=== PATIENT | female | born 1995 | race Caucasian/White ===

== ENCOUNTER 2017-03-09 20:31 | Emergency (ER) | payer OTHER, MEDICAID ==
[2017-03-09 22:43] LABS: BASO # 0.1 10^3/uL (0.0-0.2); BASO % 0.6 % (0.0-1.0); EOS # 0.2 10^3/uL (0.0-0.50); EOS % 1.9 % (0.0-3.0); IMMATURE GRANULOCYTE % 0.2 % (0-0); LYMPH # 2.1 10^3/uL (1.5-6.5); LYMPH % 25.7 % (24.0-44.0); MEAN CORPUSCULAR HEMOGLOBIN 28.5 pg (27.0-33.0); MEAN CORPUSCULAR HGB CONC 33.3 g/dl (32.0-36.5); MEAN CORPUSCULAR VOLUME 85.4 fl (80.0-96.0); MONO # 0.5 10^3/uL (0.0-0.8); MONO % 6.5 % (0.0-5.0); NEUTROPHILS # 5.3 10^3/uL (1.8-7.7); NEUTROPHILS % 65.1 % (36.0-66.0); PLATELET COUNT, AUTOMATED 268 10^3/uL (150-450); RED CELL DISTRIBUTION WIDTH 13.5 % (11.5-14.5); WHITE BLOOD COUNT 8.1 10^3/uL (4.0-10.0)
[2017-03-09 22:54] LABS: INR 0.97
[2017-03-09 22:58] LABS: CONTROL LINE HCG INT CTR LINE PRESENT
[2017-03-09 23:03] LABS: ANION GAP 5 MEQ/L (8-16); BLOOD UREA NITROGEN 17 MG/DL (7-18); CALCIUM LEVEL 8.9 MG/DL (8.5-10.1); CARBON DIOXIDE LEVEL 30 MEQ/L (21-32); CHLORIDE LEVEL 106 MEQ/L (98-107); CREATININE FOR GFR 0.61 MG/DL (0.55-1.02); GLOMERULAR FILTRATION RATE > 60.0 (>60); GLUCOSE, FASTING 86 MG/DL (70-105); MAGNESIUM LEVEL 2.1 MG/DL (1.8-2.4); POTASSIUM SERUM 3.9 MEQ/L (3.5-5.1); SODIUM LEVEL 141 MEQ/L (136-145)
== END 2017-03-10 00:20 | disposition home or self-care (01) ==
LOC: M ED 03-10 00:20
DX: R55 Syncope and collapse (principal); F90.9 Attention-deficit hyperactivity disorder, unspecified type; Z79.899 Other long term (current) drug therapy; Z88.0 Allergy status to penicillin
CPT/HCPCS: 70450

== ENCOUNTER 2017-03-17 15:29 | Emergency (ER) | payer MEDICAID, OTHER | END 2017-03-17 16:37 | disposition home or self-care (01) | LOC: M ED 15:29 | DX: J06.9 Acute upper respiratory infection, unspecified (principal); R05 Cough; R07.0 Pain in throat; F90.9 Attention-deficit hyperactivity disorder, unspecified type; F41.9 Anxiety disorder, unspecified; Z79.899 Other long term (current) drug therapy; Z88.0 Allergy status to penicillin | CPT/HCPCS: 87880 ==

== ENCOUNTER 2017-04-09 18:46 | Emergency (ER) | payer MEDICAID, OTHER, SELFPAY ==
[2017-04-09 21:18] LABS: BASO # 0.1 10^3/uL (0.0-0.2); BASO % 0.6 % (0.0-1.0); EOS # 0.5 10^3/uL (0.0-0.50); HEMATOCRIT 36.7 % (36.0-47.0); HEMOGLOBIN 12.3 g/dl (12.0-16.0); IMMATURE GRANULOCYTE % 0.2 % (0-0); LYMPH # 2.3 10^3/uL (1.5-6.5); LYMPH % 18.3 % (24.0-44.0); MEAN CORPUSCULAR HEMOGLOBIN 28.4 pg (27.0-33.0); MEAN CORPUSCULAR HGB CONC 33.5 g/dl (32.0-36.5); MEAN CORPUSCULAR VOLUME 84.8 fl (80.0-96.0); MONO # 0.7 10^3/uL (0.0-0.8); MONO % 5.8 % (0.0-5.0); NEUTROPHILS # 8.8 10^3/uL (1.8-7.7); NEUTROPHILS % 71.1 % (36.0-66.0); PLATELET COUNT, AUTOMATED 231 10^3/uL (150-450); RED BLOOD COUNT 4.33 10^6/uL (4.00-5.40); WHITE BLOOD COUNT 12.4 10^3/uL (4.0-10.0)
[2017-04-09] MEDS: ONDANSETRON 4 MG ORAL DISINTEGRATING TAB (S0181) PO (21:23)
[2017-04-09 21:25] LABS: AMORPHOUS SEDIMENT RFX SMALL (NEGATIVE); KETONE, URINE AUTO RFX NEGATIVE (NEGATIVE); LEUKOCYTE ESTERASE UR AUTO RFX 3+ (NEGATIVE); MUCUS, URINE RFX SMALL (NEGATIVE); NITRITE, URINE AUTO RFX NEGATIVE (NEGATIVE); RBC, URINE AUTO RFX 42 /HPF (0-3); SPECIFIC GRAVITY UR AUTO RFX 1.014 (1.002-1.035); SQUAM EPITHELIAL CELL UR AURFX 0 /HPF (0-6); WBC, URINE AUTO RFX TNTC /HPF (0-3)
[2017-04-09 21:36] LABS: CONTROL LINE HCG INT CTR LINE PRESENT; HCG, SERUM QUALITATIVE POSITIVE (NEGATIVE)
[2017-04-09 21:51] LABS: ALBUMIN/GLOBULIN RATIO 1.25 (1.00-1.93); ALKALINE PHOSPHATASE 59 U/L (45-117); ALT/SGPT 17 U/L (12-78); ANION GAP 5 MEQ/L (8-16); AST/SGOT 6 U/L (7-37); BILIRUBIN,DIRECT < 0.1 MG/DL (0.0-0.2); BILIRUBIN,TOTAL 0.3 MG/DL (0.2-1.0); BLOOD UREA NITROGEN 12 MG/DL (7-18); CALCIUM LEVEL 9.7 MG/DL (8.5-10.1); CARBON DIOXIDE LEVEL 28 MEQ/L (21-32); CHLORIDE LEVEL 107 MEQ/L (98-107); CREATININE FOR GFR 0.57 MG/DL (0.55-1.02); GLOMERULAR FILTRATION RATE > 60.0 (>60); GLUCOSE, FASTING 78 MG/DL (70-100); LIPASE 145 U/L (73-393); POTASSIUM SERUM 3.7 MEQ/L (3.5-5.1); SODIUM LEVEL 140 MEQ/L (136-145); TOTAL PROTEIN 7.2 GM/DL (6.4-8.2)
[2017-04-09 22:00] LABS: HCG, SERUM QUANTITATIVE 864 MIU/ML
== END 2017-04-10 00:05 | disposition home or self-care (01) ==
LOC: M ED 04-10 00:05
DX: Z32.01 Encounter for pregnancy test, result positive (principal); R10.9 Unspecified abdominal pain; N83.202 Unspecified ovarian cyst, left side; Z88.0 Allergy status to penicillin
CPT/HCPCS: 76801

== ENCOUNTER → 2017-04-11 | Outpatient (CLI) | payer MEDICAID ==
[2017-04-11 15:09] LABS: HCG, SERUM QUANTITATIVE 1731 MIU/ML
== END ==
LOC: M LAB 14:15
DX: Z32.01 Encounter for pregnancy test, result positive (principal)
CPT/HCPCS: 84702

== ENCOUNTER → 2017-07-21 | Outpatient (CLI) | payer OTHER | LOC: M SMT 10:20 | DX: O36.8920 Maternal care for other specified fetal problems, second trimester, not applicable or unspecified (principal); Z3A.19 19 weeks gestation of pregnancy | CPT/HCPCS: 76811 ==

== ENCOUNTER → 2017-09-20 | Outpatient (CLI) | payer OTHER ==
[2017-09-20 13:11] LABS: HEMATOCRIT 31.8 % (36.0-47.0); HEMOGLOBIN 10.9 g/dl (12.0-15.5); MEAN CORPUSCULAR HEMOGLOBIN 29.6 pg (27.0-33.0); MEAN CORPUSCULAR HGB CONC 34.3 g/dl (32.0-36.5); MEAN CORPUSCULAR VOLUME 86.4 fl (80.0-96.0); PLATELET COUNT, AUTOMATED 226 10^3/uL (150-450); RED BLOOD COUNT 3.68 10^6/uL (4.00-5.40); RED CELL DISTRIBUTION WIDTH 12.6 % (11.5-14.5); WHITE BLOOD COUNT 8.9 10^3/uL (4.0-10.0)
[2017-09-20 13:32] LABS: GLUCOSE CHALLENGE TEST 1 HOUR 98 MG/DL (LESS THAN 140)
== END ==
LOC: M SMT 10:00
DX: Z34.82 Encounter for supervision of other normal pregnancy, second trimester (principal)
CPT/HCPCS: 82950

== ENCOUNTER 2018-01-23 20:20 | Inpatient (IN) | payer MEDICAID, SELFPAY, OTHER ==
[~2018-01-23 20:20] MED LIST: ONDANSETRON 4MG/2ML VIAL (J2405) IV
[2018-01-23] MEDS ORDERED: HYDROMORPHONE HCL 0.5 MG/ 0.5 ML SYRINGE (J1170 PER 1) IV ×2 (21:30)
[2018-01-23] MEDS: LR 1,000 ML IV (21:36)
[2018-01-23] MEDS: MORPHINE 4 MG/ML 1ML VIAL/SYRINGE (J2270) IV (21:55)
[2018-01-23 22:09] LABS: BASO % 0.4 % (0.0-1.0); EOS # 0.2 10^3/uL (0.0-0.50); EOS % 3.1 % (0.0-3.0); HEMATOCRIT 33.1 % (36.0-47.0); HEMOGLOBIN 10.4 g/dl (12.0-15.5); IMMATURE GRANULOCYTE % 0.2 % (0-3.0); LYMPH % 39.2 % (24.0-44.0); MEAN CORPUSCULAR HEMOGLOBIN 25.2 pg (27.0-33.0); MEAN CORPUSCULAR HGB CONC 31.4 g/dl (32.0-36.5); MEAN CORPUSCULAR VOLUME 80.1 fl (80.0-96.0); MONO # 0.3 10^3/uL (0.0-0.8); MONO % 6.4 % (0.0-5.0); NEUTROPHILS # 2.6 10^3/uL (1.8-7.7); NEUTROPHILS % 50.7 % (36.0-66.0); PLATELET COUNT, AUTOMATED 189 10^3/uL (150-450); RED BLOOD COUNT 4.13 10^6/uL (4.00-5.40); RED CELL DISTRIBUTION WIDTH 15.6 % (11.5-14.5); WHITE BLOOD COUNT 5.2 10^3/uL (4.0-10.0)
[2018-01-23 22:34] LABS: ALBUMIN 3.3 GM/DL (3.2-5.2); ALBUMIN/GLOBULIN RATIO 1.18 (1.00-1.93); ALKALINE PHOSPHATASE 149 U/L (45-117); ALT/SGPT 90 U/L (12-78); AMYLASE 607 U/L (25-115); ANION GAP 6 MEQ/L (8-16); AST/SGOT 42 U/L (7-37); BILIRUBIN,TOTAL 0.4 MG/DL (0.2-1.0); BLOOD UREA NITROGEN 4 MG/DL (7-18); CALCIUM LEVEL 8.6 MG/DL (8.5-10.1); CARBON DIOXIDE LEVEL 26 MEQ/L (21-32); CHLORIDE LEVEL 109 MEQ/L (98-107); CREATININE FOR GFR 0.49 MG/DL (0.55-1.30); GLOMERULAR FILTRATION RATE > 60.0 (>60); GLUCOSE, FASTING 84 MG/DL (70-100); LIPASE 5092 U/L (73-393); POTASSIUM SERUM 4.1 MEQ/L (3.5-5.1); SODIUM LEVEL 141 MEQ/L (136-145); TOTAL PROTEIN 6.1 GM/DL (6.4-8.2)
[2018-01-24] MEDS: KETOROLAC 30 MG/ML VIAL (J1885) IV ×2 (00:21→05:31)
[2018-01-24] MEDS: LR 1,000 ML IV (05:30)
[2018-01-24] MEDS: PANTOPRAZOLE 40MG INJ (PROTONIX) (C9113) IV (09:13)
[2018-01-24] MEDS: levETIRAcetam 250MG TABLET (KEPPRA) PO (09:13)
[2018-01-24 10:30] LABS: ALBUMIN 2.9 GM/DL (3.2-5.2); ALBUMIN/GLOBULIN RATIO 1.07 (1.00-1.93); ALKALINE PHOSPHATASE 144 U/L (45-117); ALT/SGPT 76 U/L (12-78); ANION GAP 5 MEQ/L (8-16); AST/SGOT 34 U/L (7-37); BILIRUBIN,TOTAL 0.3 MG/DL (0.2-1.0); BLOOD UREA NITROGEN 4 MG/DL (7-18); CALCIUM LEVEL 8.7 MG/DL (8.5-10.1); CARBON DIOXIDE LEVEL 28 MEQ/L (21-32); CHLORIDE LEVEL 109 MEQ/L (98-107); CREATININE FOR GFR 0.52 MG/DL (0.55-1.30); GLOMERULAR FILTRATION RATE > 60.0 (>60); GLUCOSE, FASTING 84 MG/DL (70-100); LIPASE 1260 U/L (73-393); POTASSIUM SERUM 4.3 MEQ/L (3.5-5.1); SODIUM LEVEL 142 MEQ/L (136-145); TOTAL PROTEIN 5.6 GM/DL (6.4-8.2)
== END 2018-01-24 10:43 | disposition left against medical advice (07) ==
LOC: M PED 20:20
DX: K80.70 Calculus of gallbladder and bile duct without cholecystitis without obstruction (principal); K85.10 Biliary acute pancreatitis without necrosis or infection; Z79.899 Other long term (current) drug therapy; J45.909 Unspecified asthma, uncomplicated; Z88.1 Allergy status to other antibiotic agents; G40.909 Epilepsy, unspecified, not intractable, without status epilepticus

== ENCOUNTER → 2021-06-24 | Outpatient (REF) ==
[~2021-06-24] MED LIST changes: +CLON0.5T2; +FLUO10CA18 PO; +KEPP1TAB2 PO; -ONDANSETRON 4MG/2ML VIAL (J2405) IV; +PRAZ2CAP PO; +PROM12.56 PO; +RANI150T PO; +RITA10TA PO; +TESS100C PO; +TRAZ-257 PO; +VENTAER INH; +ZITHTAB PO
== END ==
LOC: M PLAIMG 12:04
PROVIDERS: ATTEND Internal Medicine
DX: M54.6 Pain in thoracic spine (principal)

== ENCOUNTER 2022-03-24 12:04 | Emergency (ER) | payer MEDICAID, OTHER ==
[~2022-03-24] VITALS: Ht 152.4 cm; Wt 62.7 kg
[2022-03-24] MEDS ORDERED: FOLI400T13 PO (12:18)
[2022-03-24] MEDS ORDERED: PALI1TAB (12:18)
[2022-03-24] MEDS ORDERED: PRENTAB77 PO (12:18)
[2022-03-24 17:23] LABS: HEMATOCRIT 35.2 % (36.0-47.0); HEMOGLOBIN 11.5 g/dl (12.0-15.5); MEAN CORPUSCULAR HEMOGLOBIN 27.9 pg (27.0-33.0); MEAN CORPUSCULAR HGB CONC 32.7 g/dl (32.0-36.5); MEAN CORPUSCULAR VOLUME 85.4 fl (80.0-96.0); PLATELET COUNT, AUTOMATED 205 10^3/uL (150-450); RED BLOOD COUNT 4.12 10^6/uL (4.00-5.40); WHITE BLOOD COUNT 9.8 10^3/uL (4.0-10.0)
[2022-03-24 17:45] LABS: BASOPHILS 1 % (0-1); LYMPHOCYTES 15 % (16-44); MONOCYTES 2 % (0-5); NEUTROPHILS 82 % (28-66); PLATELET ESTIMATE NORMAL (NORMAL)
[2022-03-24 17:53] LABS: BILIRUBIN,DIRECT < 0.1 MG/DL (<0.4); CPK CREATINE PHOSPHOKINASE 17 U/L (34-145); MAGNESIUM LEVEL 1.6 MG/DL (1.8-2.4)
[2022-03-24 17:54] LABS: ALBUMIN 3.1 G/DL (3.2-5.2); ALKALINE PHOSPHATASE 104 U/L (46-116); ALT/SGPT 36 U/L (7.0-40); AST/SGOT 17 U/L (<34); BILIRUBIN,TOTAL 0.3 MG/DL (0.3-1.2); BLOOD UREA NITROGEN 6 MG/DL (9-23); CALCIUM LEVEL 8.9 MG/DL (8.5-10.1); CARBON DIOXIDE LEVEL 25 MMOL/L (20-31); CHLORIDE LEVEL 104 MMOL/L (98-107); CREATININE FOR GFR 0.38 MG/DL (0.55-1.30); GLOMERULAR FILTRATION RATE > 60.0 (>60); GLUCOSE, FASTING 73 MG/DL (60-100); POTASSIUM SERUM 3.6 MMOL/L (3.5-5.1); SODIUM LEVEL 137 MMOL/L (136-145); TOTAL PROTEIN 6.2 G/DL (5.7-8.2)
[2022-03-24] MEDS ORDERED: MAGNESIUM OXIDE 400MG TAB (MAG-OX) PO ONE (18:15)
[2022-03-24] MEDS ORDERED: ACETAMINOPHEN 325 MG TAB PO ONE (18:35)
[2022-03-24] MEDS ORDERED: PERCOCET 5MG/325MG TAB PO ONE (19:35)
[2022-03-24 21:02] VITALS: BP 100/65
== END 2022-03-24 21:16 | disposition home or self-care (01) ==
LOC: M ED 12:04
DX: O99.352 Diseases of the nervous system complicating pregnancy, second trimester (principal); G40.909 Epilepsy, unspecified, not intractable, without status epilepticus; F31.9 Bipolar disorder, unspecified; F90.9 Attention-deficit hyperactivity disorder, unspecified type; F43.10 Post-traumatic stress disorder, unspecified; G43.909 Migraine, unspecified, not intractable, without status migrainosus; J45.909 Unspecified asthma, uncomplicated; Z88.1 Allergy status to other antibiotic agents; Z3A.18 18 weeks gestation of pregnancy; Z79.51 Long term (current) use of inhaled steroids; Z79.810 Long term (current) use of selective estrogen receptor modulators (SERMs); Z79.899 Other long term (current) drug therapy

== ENCOUNTER 2022-07-28 15:03 | Inpatient (IN) | payer OTHER ==
[2022-07-28] VITALS (16 sets, daily range): BP systolic 94–121; BP diastolic 50–76
[~2022-07-28] VITALS: Ht 152.4 cm; Wt 63.0 kg
[~2022-07-28 15:03] MED LIST changes: +FOLI400T13 PO; +PALI1TAB; +PRENTAB77 PO
[2022-07-28] MEDS ORDERED: URSO300C3 PO (15:22)
[2022-07-28] MEDS ORDERED: ZONI100C67 PO (15:22)
[2022-07-28] MEDS ORDERED: HOME MED LIST COMPLETE! XX SCH (15:25)
[2022-07-28] MEDS ORDERED: METHYLERGONOVINE MALEATE 0.2MG/ML 1ML VIAL IM PRN (17:35)
[2022-07-28] MEDS ORDERED: TRANEXAMIC ACID INJection 1,000 MG in NS 100 ML IV PRN (17:35)
[2022-07-28] MEDS ORDERED: OXYTOCIN INJ 10UNITS/ML 1ML VIAL IM PRN (17:35)
[2022-07-28] MEDS ORDERED: OXYTOCIN DRIP 30 UNITS in IV 1 EA IV PRN ×4 (17:35)
[2022-07-28] MEDS ORDERED: LIDOCAINE 1% MDV 20ML VIAL INFIL PRN (17:35)
[2022-07-28] MEDS ORDERED: CARBOPROST TROMETHAMINE 250 MCG/ML AMP IM PRN (17:35)
[2022-07-28 18:16] LABS: HEMATOCRIT 29.3 % (36.0-47.0); HEMOGLOBIN 9.1 g/dl (12.0-15.5); MEAN CORPUSCULAR HGB CONC 31.1 g/dl (32.0-36.5); MEAN CORPUSCULAR VOLUME 74.2 fl (80.0-96.0); PLATELET COUNT, AUTOMATED 265 10^3/uL (150-450); RED BLOOD COUNT 3.95 10^6/uL (4.00-5.40)
[2022-07-28 18:50] LABS: ALBUMIN 2.2 G/DL (3.2-5.2); ALKALINE PHOSPHATASE 202 U/L (46-116); ALT/SGPT 115 U/L (7.0-40); AST/SGOT 44 U/L (<34); BILIRUBIN,TOTAL 0.4 MG/DL (0.3-1.2); BLOOD UREA NITROGEN 7 MG/DL (9-23); CALCIUM LEVEL 9.5 MG/DL (8.5-10.1); CARBON DIOXIDE LEVEL 19 MMOL/L (20-31); CHLORIDE LEVEL 107 MMOL/L (98-107); CREATININE FOR GFR 0.45 MG/DL (0.55-1.30); GLOMERULAR FILTRATION RATE > 60.0 (>60); GLUCOSE, FASTING 114 MG/DL (60-100); POTASSIUM SERUM 4.1 MMOL/L (3.5-5.1); SODIUM LEVEL 136 MMOL/L (136-145); TOTAL PROTEIN 5.6 G/DL (5.7-8.2)
[2022-07-28] MEDS ORDERED: KEPP10002 PO (19:34)
[2022-07-28] MEDS: LR 1,000 ML IV SCH (19:54)
[2022-07-28] MEDS ORDERED: EPIDURAL/PCA KEYS XX PRN (20:10)
[2022-07-28] MEDS ORDERED: NALOXONE INJ 0.4MG/1ML VIAL IV PRN (20:10)
[2022-07-28] MEDS ORDERED: diphenhydrAMINE 50MG/ML VIAL IV PRN (20:10)
[2022-07-28] MEDS ORDERED: LR 500 ML IV PRN (20:10)
[2022-07-28] MEDS ORDERED: ONDANSETRON 4MG 2ML VIAL IV PRN (20:10)
[2022-07-28] MEDS ORDERED: ePHEDrine SULFATE 25 MG/5 ML(5MG/ML) SYRINGE IVP PRN (20:10)
[2022-07-28] MEDS: FENTANYL/ROPIVACAINE/NACL BAG 100 ML EPIDURAL SCH (22:08)
[2022-07-28] MEDS: ZONISAMIDE 100 MG CAP (ZONEGRAN) PO SCH (22:08)
[2022-07-28] MEDS: ursodioL 300MG CAP PO SCH (22:09)
[2022-07-28] MEDS: levETIRAcetam 250MG TABLET (KEPPRA) PO SCH (22:10)
[2022-07-29] VITALS (19 sets, daily range): BP systolic 86–114; BP diastolic 51–71
[2022-07-29] MEDS: LR 1,000 ML IV SCH ×3 (06:16→22:01)
[2022-07-29] MEDS: FENTANYL/ROPIVACAINE/NACL BAG 100 ML EPIDURAL SCH ×2 (06:16→16:18)
[2022-07-29] MEDS: levETIRAcetam 250MG TABLET (KEPPRA) PO SCH ×2 (09:10→21:32)
[2022-07-29] MEDS: ursodioL 300MG CAP PO SCH ×3 (09:16→21:33)
[2022-07-29] MEDS ORDERED: BETAMETHASONE SOLUSPAN 6MG/ML 5ML VIAL IM ONE (12:10)
[2022-07-29] MEDS ORDERED: OXYTOCIN DRIP 30 UNITS in IV 1 EA IV SCH (17:50)
[2022-07-29] MEDS: ZONISAMIDE 100 MG CAP (ZONEGRAN) PO SCH (22:01)
[2022-07-30] VITALS (16 sets, daily range): BP systolic 103–120; BP diastolic 55–73
[2022-07-30] MEDS: FENTANYL/ROPIVACAINE/NACL BAG 100 ML EPIDURAL SCH (02:23)
[2022-07-30] MEDS ORDERED: ACETAMINOPHEN 500 MG TAB PO PRN (06:35)
[2022-07-30] MEDS ORDERED: IBUPROFEN 600MG TAB PO PRN (06:35)
[2022-07-30] MEDS ORDERED: OXYTOCIN DRIP 30 UNITS in IV 1 EA IV SCH (06:35)
[2022-07-30] MEDS ORDERED: LR 1,000 ML IV SCH (06:35)
[2022-07-30] MEDS ORDERED: RHOGAM 300MCG (1500IU) INJ IM SCH (06:35)
[2022-07-30] MEDS ORDERED: DOCUSATE SODIUM 100MG CAPSULE PO PRN (06:35)
[2022-07-30] MEDS ORDERED: DIBUCAINE 1% OINTMENT 30GM TOP PRN (06:35)
[2022-07-30] MEDS: levETIRAcetam 250MG TABLET (KEPPRA) PO SCH ×2 (07:35→21:11)
[2022-07-30] MEDS: PRENATAL VITAMINS CHEWABLE TABLET PO SCH (09:00)
[2022-07-30] MEDS: IBUPROFEN 800 MG TAB PO PRN ×2 (10:05→17:06)
[2022-07-30] MEDS: ursodioL 300MG CAP PO SCH ×3 (11:27→21:10)
[2022-07-30] MEDS: ZONISAMIDE 100 MG CAP (ZONEGRAN) PO SCH (21:11)
[2022-07-31 02:00] VITALS: BP 97/59
[2022-07-31] MEDS: ACETAMINOPHEN TAB 650MG DOSE (2X325MG) PO PRN ×2 (05:31→12:02)
[2022-07-31 06:00] VITALS: BP 92/53
[2022-07-31] MEDS: levETIRAcetam 250MG TABLET (KEPPRA) PO SCH (08:59)
[2022-07-31] MEDS: ursodioL 300MG CAP PO SCH (09:00)
[2022-07-31] MEDS: PRENATAL VITAMINS CHEWABLE TABLET PO SCH (09:00)
[2022-07-31 10:00] VITALS: BP 102/62
[2022-07-31] MEDS: IBUPROFEN 800 MG TAB PO PRN (10:50)
[2022-08-01] MEDS ORDERED: ZONI50CA11 PO (03:22)
[2022-08-01] MEDS ORDERED: MEASLES,MUMPS,RUBELLA VACCINE INJ (MMR-II) SC.IMMUN ONE (09:00)
[2022-08-03] MEDS ORDERED: ACET-683 PO (11:17)
[2022-08-03] MEDS ORDERED: IBUP1TAB6 PO (11:17)
== END 2022-07-31 15:00 | disposition home or self-care (01) | DRG 560 ==
LOC: M LDO 15:03 → M LDI 17:35 → M OBS 07-30 11:04
PROVIDERS: ADMIT Advanced Practice Midwife; ATTEND Advanced Practice Midwife
PROC: 10E0XZZ Delivery of Products of Conception, External Approach (ICD-10-PCS; principal; 2022-07-30)
DX: O60.14X0 Preterm labor third trimester with preterm delivery third trimester, not applicable or unspecified (principal); K83.1 Obstruction of bile duct; O26.62 Liver and biliary tract disorders in childbirth; G40.909 Epilepsy, unspecified, not intractable, without status epilepticus; O99.354 Diseases of the nervous system complicating childbirth; Z37.0 Single live birth; Z3A.35 35 weeks gestation of pregnancy; Z88.0 Allergy status to penicillin; Z91.018 Allergy to other foods; Z79.899 Other long term (current) drug therapy; Z88.8 Allergy status to other drugs, medicaments and biological substances

== ENCOUNTER 2023-07-03 18:18 | Emergency (ER) | payer MEDICAID, OTHER ==
[~2023-07-03] VITALS: Ht 152.4 cm; Wt 63.6 kg
[~2023-07-03 18:18] MED LIST changes: +ACET-683 PO; +IBUP1TAB6 PO; +KEPP10002 PO; +URSO300C3 PO; +ZONI100C67 PO; +ZONI50CA11 PO
[2023-07-03 18:29] VITALS: TEMP 97.1
[2023-07-03] MEDS: KETOROLAC 30 MG/ML 1ML VIAL IV ONE (20:10)
[2023-07-03] MEDS: NS 1,000 ML IV ONE ×2 (20:11→20:55)
[2023-07-03] MEDS: ONDANSETRON 4MG 2ML VIAL IV ONE (20:11)
[2023-07-03 20:23] LABS: BASO # 0.1 10^3/uL (0.0-0.2); BASO % 0.7 % (0.0-1.0); EOS # 0.2 10^3/uL (0.0-0.5); EOS % 2.2 % (0.0-3.0); HEMATOCRIT 43.9 % (36.0-47.0); HEMOGLOBIN 14.3 g/dl (12.0-15.5); LYMPH # 2.8 10^3/uL (1.5-5.0); LYMPH % 33.4 % (24.0-44.0); MEAN CORPUSCULAR HEMOGLOBIN 26.3 pg (27.0-33.0); MEAN CORPUSCULAR HGB CONC 32.6 g/dl (32.0-36.5); MEAN CORPUSCULAR VOLUME 80.8 fl (80.0-96.0); MONO # 0.6 10^3/uL (0.0-0.8); MONO % 7.1 % (2.0-8.0); NEUTROPHILS # 4.7 10^3/uL (1.5-8.5); NEUTROPHILS % 56.4 % (36.0-66.0); PLATELET COUNT, AUTOMATED 256 10^3/uL (150-450); RED BLOOD COUNT 5.43 10^6/uL (4.00-5.40); WHITE BLOOD COUNT 8.3 10^3/uL (4.0-10.0)
[2023-07-03 20:47] LABS: HCG, SERUM QUALITATIVE NEGATIVE (NEGATIVE)
[2023-07-03] MEDS: MORPHINE 4 MG/ML 1ML VIAL IV ONE ×2 (21:02→22:27)
[2023-07-03 21:18] LABS: BLOOD UREA NITROGEN 16 MG/DL (9-23); CALCIUM LEVEL 9.2 MG/DL (8.5-10.1); CARBON DIOXIDE LEVEL 24 MMOL/L (20-31); CHLORIDE LEVEL 108 MMOL/L (98-107); GLOMERULAR FILTRATION RATE > 60.0 (>60); GLUCOSE, FASTING 87 MG/DL (60-100); POTASSIUM SERUM 4.1 MMOL/L (3.5-5.1); SODIUM LEVEL 142 MMOL/L (136-145)
[2023-07-03 21:30] LABS: ALKALINE PHOSPHATASE 85 U/L (46-116); ALT/SGPT 138 U/L (7.0-40); AST/SGOT 16 U/L (<34); BILIRUBIN,DIRECT 0.1 MG/DL (<0.4); BILIRUBIN,TOTAL 0.3 MG/DL (0.3-1.2); TOTAL PROTEIN 7.3 G/DL (5.7-8.2)
[2023-07-03] MEDS ORDERED: ISOVUE-370 76% 100ML VIAL As Ordered ONE (21:31)
[2023-07-03 21:53] LABS: LIPASE 35 U/L (12-53)
[2023-07-03 23:15] VITALS: BP 111/65
[2023-07-03 23:20] VITALS: O2SAT 99
[2023-07-03] MEDS ORDERED: OXYC-600 PO (23:25)
[2023-07-03 23:26] LABS: VALPROIC ACID (DEPAKOTE) 75.3 UG/ML (50.0-100.0)
== END 2023-07-03 23:35 | disposition home or self-care (01) ==
LOC: M ED 18:18
DX: G43.909 Migraine, unspecified, not intractable, without status migrainosus (principal); K63.89 Other specified diseases of intestine; Z88.1 Allergy status to other antibiotic agents
CPT/HCPCS: 74177; 80048; 80076; 80164; 80180; 80203; 83690; 84703; 85025; 96361; 96374; 96375; 96376; 99284; J1885; J2405; Q9967

== ENCOUNTER 2024-01-15 18:55 | Emergency (ER) | payer OTHER ==
[~2024-01-15] VITALS: Ht 152.4 cm; Wt 79.0 kg
[~2024-01-15 18:55] MED LIST changes: +FLUO-290 PO; -FLUO10CA18 PO; +OXYC-600 PO
[2024-01-15 19:44] LABS: IONIZED CALCIUM 4.7 MG/DL (4.5-5.3)
[2024-01-15 19:46] LABS: VENOUS BASE EXCESS -2.4 (-2.0-2.0); VENOUS HCO3 23.7 MMOL/L (23.0-27.0); VENOUS O2 SATURATION 69.8 % (60.0-80.0); VENOUS PARTIAL PRESSURE O2 39.1 mmHg (30.0-50.0); VENOUS STANDARD HCO3 21.8 MMOL/L; VENOUS TOTAL CO2 25.1 MMOL/L (24.0-28.0)
[2024-01-15 19:49] LABS: BASO # 0.1 10^3/uL (0.0-0.2); BASO % 0.9 % (0.0-1.0); EOS # 0.2 10^3/uL (0.0-0.5); EOS % 2.3 % (0.0-3.0); HEMATOCRIT 41.4 % (36.0-47.0); HEMOGLOBIN 13.2 g/dl (12.0-15.5); LYMPH # 2.7 10^3/uL (1.5-5.0); LYMPH % 28.6 % (24.0-44.0); MEAN CORPUSCULAR HEMOGLOBIN 26.1 pg (27.0-33.0); MEAN CORPUSCULAR HGB CONC 31.9 g/dl (32.0-36.5); MONO # 0.6 10^3/uL (0.0-0.8); MONO % 6.6 % (2.0-8.0); NEUTROPHILS # 5.7 10^3/uL (1.5-8.5); NEUTROPHILS % 61.3 % (36.0-66.0); PLATELET COUNT, AUTOMATED 264 10^3/uL (150-450); RED BLOOD COUNT 5.05 10^6/uL (4.00-5.40); WHITE BLOOD COUNT 9.3 10^3/uL (4.0-10.0)
[2024-01-15 20:32] LABS: VALPROIC ACID (DEPAKOTE) 108.6 UG/ML (50.0-100.0)
[2024-01-15 20:42] LABS: ALBUMIN 3.7 G/DL (3.2-5.2); ALKALINE PHOSPHATASE 61 U/L (35-104); ALT/SGPT 27 U/L (7.0-40); AST/SGOT 84 U/L (<34); BILIRUBIN,DIRECT < 0.1 MG/DL (<0.4); BILIRUBIN,TOTAL 0.3 MG/DL (0.3-1.2); BLOOD UREA NITROGEN 12 MG/DL (9-23); CALCIUM LEVEL 9.7 MG/DL (8.5-10.1); CARBON DIOXIDE LEVEL 24 MMOL/L (20-31); CHLORIDE LEVEL 107 MMOL/L (98-107); CREATININE FOR GFR 0.49 MG/DL (0.55-1.30); GLOMERULAR FILTRATION RATE > 60.0 (>60); GLUCOSE, FASTING 83 MG/DL (60-100); MAGNESIUM LEVEL 2.2 MG/DL (1.8-2.4); PHOSPHORUS LEVEL 3.6 MG/DL (2.5-4.9); POTASSIUM SERUM 4.3 MMOL/L (3.5-5.1); SODIUM LEVEL 139 MMOL/L (136-145); TOTAL PROTEIN 7.5 G/DL (5.7-8.2)
[2024-01-15] MEDS: KETOROLAC 30 MG/ML 1ML VIAL IV ONE (20:43)
[2024-01-15 20:47] LABS: AMPHETAMINES LEVEL URINE NEGATIVE (NEGATIVE); BARBITURATES URINE NEGATIVE (NEGATIVE); BENZODIAZEPINES URINE NEGATIVE (NEGATIVE); CANNABINOIDS URINE NEGATIVE (NEGATIVE); COCAINE METABOLITE URINE NEGATIVE (NEGATIVE); METHADONE URINE NEGATIVE (NEGATIVE); OPIATES URINE NEGATIVE (NEGATIVE); PHENCYCLIDINE URINE NEGATIVE (NEGATIVE)
[2024-01-15] MEDS ORDERED: ISOVUE-370 76% 100ML VIAL As Ordered ONE (20:59)
[2024-01-15] MEDS: MORPHINE 4 MG/ML 1ML VIAL IV ONE (21:32)
[2024-01-15] MEDS: levETIRAcetam INJection 1,000 MG in D5W 100 ML IV ONE (21:32)
[2024-01-15] MEDS: ANEXSIA, NORCO 7.5MG/325MG TABLET(HYDROCODONE/APAP) PO ONE (23:24)
[2024-01-15] MEDS: MORPHINE 2 MG/ML 1ML VIAL IV ONE (23:24)
[2024-01-16] MEDS ORDERED: HYDR-3713 PO (00:16)
[2024-01-16] MEDS ORDERED: MIDA5SPR NS (00:22)
[2024-01-16 00:32] VITALS: BP 103/64; TEMP 97.9; O2SAT 98
== END 2024-01-16 00:56 | disposition home or self-care (01) ==
LOC: EDBD 18:55 → M ED 18:55
DX: G40.909 Epilepsy, unspecified, not intractable, without status epilepticus (principal); R10.31 Right lower quadrant pain; G43.909 Migraine, unspecified, not intractable, without status migrainosus; F41.9 Anxiety disorder, unspecified; F31.9 Bipolar disorder, unspecified; F90.9 Attention-deficit hyperactivity disorder, unspecified type; F43.10 Post-traumatic stress disorder, unspecified; F32.A Depression, unspecified; Z88.1 Allergy status to other antibiotic agents; Z88.8 Allergy status to other drugs, medicaments and biological substances; Z79.1 Long term (current) use of non-steroidal anti-inflammatories (NSAID); Z79.899 Other long term (current) drug therapy
CPT/HCPCS: 70450; 71260; 72125; 74177; 80048; 80076; 80164; 80177; 80307; 82140; 82330; 82803; 83605; 83735; 84100; 85025; 87486; 87581; 87633; 87798; 93041; 94760; 96365; 96375; 96376; 99285; J1885; J1953; Q9967